=== PATIENT | male | born 1960 | race Caucasian/White ===

== ENCOUNTER 2020-04-23 20:58 | Observation (INO) | payer BC, OTHER ==
[~2020-04-23] VITALS: Ht 182.9 cm; Wt 138.3 kg
[2020-04-23 21:36] LABS: BASOPHILS # (AUTO) 0.1 (0.0-0.1); BASOPHILS % 0.8 % (0.0-1.0); EOSINOPHILS # (AUTO) 0.2 (0.0-0.4); HEMATOCRIT 44.6 % (38.2-49.6); HEMOGLOBIN 16.1 g/dL (14.0-18.0); LYMPHOCYTES # (AUTO) 3.8 (1.0-3.2); MEAN CORPUSCULAR HEMOGLOBIN 34.5 pg (28-32); MEAN CORPUSCULAR HGB CONC 36.1 g/dL (31-35); MEAN CORPUSCULAR VOLUME 95.7 fL (81-99); MONOCYTES % 11.2 % (4.4-11.3); NEUTROPHILS % 43.8 % (38.7-80.0); PLATELET COUNT 260 x10e3/uL (140-360); RED BLOOD COUNT 4.66 x10e6/uL (4.3-5.7); RED CELL DISTRIBUTION WIDTH 12.7 % (11.7-14.4)
[2020-04-23 21:45] LABS: INR 0.88; PROTHROMBIN TIME 12.4 seconds (11.9-14.5)
[2020-04-23 21:46] LABS: PARTIAL THROMBOPLASTIN TIME 43.5 seconds (23.8-35.5)
[2020-04-23 21:55] LABS: ALANINE AMINOTRANSFERASE 42 IU/L (0-55); ALBUMIN 3.9 g/dL (3.5-5.0); ALBUMIN/GLOBULIN RATIO 1.1 (0.8-2.0); ALKALINE PHOSPHATASE 64 IU/L (40-150); ANION GAP 14.3 mmol/L (8-16); BLOOD UREA NITROGEN 16 mg/dL (7-26); BUN/CREATININE RATIO 18 (6-25); CALCIUM 8.5 mg/dL (8.4-10.2); CARBON DIOXIDE 24 mmol/L (22-29); CHLORIDE 106 mmol/L (98-107); CREATINE KINASE 144 IU/L (30-200); EST GLOMERULAR FILTRATION RATE > 60 ML/MIN (60-); GLUCOSE 138 mg/dL (74-118); POTASSIUM 4.3 mmol/L (3.5-5.1); SODIUM 140 mmol/L (136-145)
[2020-04-24] MEDS ORDERED: METOPROLOL TARTRATE INJ 1 MG/ML VIAL IV ONE (02:30)
[2020-04-24] MEDS ORDERED: METOPROLOL TARTRATE INJ 1 MG/ML VIAL ONE (02:47)
[2020-04-24 06:27] LABS: CREATINE KINASE MB 2.4 ng/mL (0-5.0)
[2020-04-24] MEDS: APIXABAN 5 MG TABLET PO SCH ×2 (10:54→17:29)
[2020-04-24] MEDS: AMIODARONE HCL 200 MG TAB PO SCH ×2 (10:54→17:29)
[2020-04-24] MEDS ORDERED: ALEVE220 M1 PO (12:46)
[2020-04-24] MEDS ORDERED: MULTI-VITAMIN1 EACH PO (12:46)
[2020-04-24] MEDS ORDERED: OMEPRAZOLE40 MG PO (12:46)
[2020-04-24] MEDS ORDERED: ASCORBIC ACID500 MG PO (12:46)
[2020-04-24 14:07] LABS: CREATINE KINASE MB 2.2 ng/mL (0-5.0)
[2020-04-24 14:09] VITALS: BP 131/91
[2020-04-24 16:58] VITALS: BP 131/98
[2020-04-24 20:00] VITALS: BP 132/88
[2020-04-25] VITALS: BP 125/87
[2020-04-25 00:02] VITALS: BP 132/88
[2020-04-25 04:00] VITALS: BP 128/89
[2020-04-25 05:39] LABS: BASOPHILS % 0.6 % (0.0-1.0); EOSINOPHILS # (AUTO) 0.1 (0.0-0.4); HEMATOCRIT 48.1 % (38.2-49.6); HEMOGLOBIN 16.3 g/dL (14.0-18.0); LYMPHOCYTES # (AUTO) 2.3 (1.0-3.2); LYMPHOCYTES % 32.2 % (18.0-39.1); MEAN CORPUSCULAR HGB CONC 33.9 g/dL (31-35); MEAN CORPUSCULAR VOLUME 94.5 fL (81-99); MONOCYTES # (AUTO) 0.8 (0.2-0.8); NEUTROPHILS # (AUTO) 3.7 (2.1-6.9); NEUTROPHILS % 52.9 % (38.7-80.0); PLATELET COUNT 237 x10e3/uL (140-360); RED BLOOD COUNT 5.09 x10e6/uL (4.3-5.7); RED CELL DISTRIBUTION WIDTH 12.2 % (11.7-14.4)
[2020-04-25 05:44] LABS: CALCIUM IONIZED 1.2 mmol/L (1.09-1.30)
[2020-04-25 06:11] LABS: ALANINE AMINOTRANSFERASE 41 IU/L (0-55); ALBUMIN 3.9 g/dL (3.5-5.0); ALBUMIN/GLOBULIN RATIO 1.1 (0.8-2.0); ALKALINE PHOSPHATASE 70 IU/L (40-150); ANION GAP 13.3 mmol/L (8-16); BLOOD UREA NITROGEN 18 mg/dL (7-26); BUN/CREATININE RATIO 19 (6-25); CALCIUM 8.6 mg/dL (8.4-10.2); CARBON DIOXIDE 28 mmol/L (22-29); CHLORIDE 104 mmol/L (98-107); CREATININE, SERUM 0.95 mg/dL (0.72-1.25); EST GLOMERULAR FILTRATION RATE > 60 ML/MIN (60-); GLUCOSE 116 mg/dL (74-118); MAGNESIUM 1.9 MG/DL (1.3-2.1); POTASSIUM 4.3 mmol/L (3.5-5.1); SODIUM 141 mmol/L (136-145)
[2020-04-25 06:32] LABS: CHOL/HDL RATIO 4.6 (3.9-4.7)
[2020-04-25] MEDS: APIXABAN 5 MG TABLET PO SCH (09:17)
[2020-04-25] MEDS: AMIODARONE HCL 200 MG TAB PO SCH (09:17)
[2020-04-25 09:42] VITALS: BP 142/90
[2020-04-25] MEDS ORDERED: ELIQUIS5 MG PO (09:50)
[2020-04-25] MEDS ORDERED: AMIODARONE HCL200 MG PO (09:50)
== END 2020-04-25 11:02 | disposition home or self-care (01) ==
LOC: ER 22:35 → ERHOLD 04-24 02:57 → MED/SURG2 04-24 12:13
PROVIDERS: ADMIT Internal Medicine; ATTEND Internal Medicine
DX: I48.0 Paroxysmal atrial fibrillation (principal); M06.9 Rheumatoid arthritis, unspecified; Z11.59 Encounter for screening for other viral diseases; E66.9 Obesity, unspecified; Z68.41 Body mass index [BMI] 40.0-44.9, adult; E07.9 Disorder of thyroid, unspecified; K21.9 Gastro-esophageal reflux disease without esophagitis
CPT/HCPCS: 36415 ×3; 71046; 80053 ×2; 80061; 82550 ×2; 82553 ×2; 83735; 83880; 84100; 84443; 84484 ×2; 85025 ×2; 85610; 85730; 93005; 93306; 99251; 99284; G0378 ×2; U0002

== ENCOUNTER 2025-01-14 07:51 | Observation (INO) | payer BC, OTHER ==
[~2025-01-14] VITALS: Ht 180.3 cm; Wt 133.8 kg
[2025-01-14] VITALS (8 sets, daily range): BP systolic 112–143; BP diastolic 76–94; PULSE 65–100; RESP 15–20; TEMP 97.5–98.6; O2SAT 96–99
[~2025-01-14 07:51] MED LIST: ALEVE220 M1 PO; AMIODARONE HCL200 MG PO; ASCORBIC ACID500 MG PO; ELIQUIS5 MG PO; MULTI-VITAMIN1 EACH PO; OMEPRAZOLE40 MG PO
[2025-01-14] MEDS ORDERED: ENOXAPARIN SODIUM INJ 100 MG/ML SYR SC SCH (08:00)
[2025-01-14] MEDS ORDERED: SODIUM CHLORIDE FLUSH 10 ML SYR IV PRN (08:00)
[2025-01-14 08:11] LABS: BASOPHILS % 0.5 % (0.0-1.0); EOSINOPHILS % 2.1 % (0.0-6.0); LYMPHOCYTES % 37.0 % (18.0-39.1); MONOCYTES % 11.1 % (4.4-11.3); NEUTROPHILS % 49.1 % (38.7-80.0); RED CELL DISTRIBUTION WIDTH 12.2 % (11.7-14.4)
[2025-01-14] MEDS: ENOXAPARIN SODIUM INJ 100 MG/ML SYR SC SCH (08:23)
[2025-01-14] MEDS: ASPIRIN 81 MG CHEW TAB PO ONE (08:23)
[2025-01-14 08:40] LABS: EST GLOMERULAR FILTRATION RATE 87.0 ML/MIN (>=60)
[2025-01-14] MEDS ORDERED: ONDANSETRON HCL INJ 2MG/ML 2ML 2 MG/ML VIAL IV PRN (09:45)
[2025-01-14] MEDS ORDERED: SODIUM CHLORIDE FLUSH 10 ML SYR INJ PRN (09:45)
[2025-01-14] MEDS ORDERED: POLYETHYLENE GLYCOL 3350 17 GM PACK PO PRN (23:45)
[2025-01-14] MEDS ORDERED: BISACODYL 10 MG SUPP PR PRN (23:45)
[2025-01-14] MEDS ORDERED: LABETALOL HCL 5 MG/ML 20ML VIAL IV PRN (23:45)
[2025-01-14] MEDS ORDERED: ACETAMINOPHEN 325 MG TAB PO PRN (23:45)
[2025-01-15] VITALS: BP 110/73; PULSE 72; RESP 20; TEMP 98; O2SAT 95
[2025-01-15 02:33] VITALS: BP 110/73; PULSE 72; RESP 20; TEMP 98; O2SAT 95
[2025-01-15 04:00] VITALS: BP 108/73; PULSE 68; RESP 20; TEMP 98; O2SAT 98
[2025-01-15 06:15] LABS: BASOPHILS % 0.7 % (0.0-1.0); EOSINOPHILS % 2.8 % (0.0-6.0); LYMPHOCYTES % 36.4 % (18.0-39.1); MONOCYTES % 13.8 % (4.4-11.3); NEUTROPHILS % 46.0 % (38.7-80.0); RED CELL DISTRIBUTION WIDTH 12.3 % (11.7-14.4)
[2025-01-15 06:42] LABS: EST GLOMERULAR FILTRATION RATE 88.0 ML/MIN (>=60)
[2025-01-15 07:12] LABS: CHOL/HDL RATIO 4.8 (3.9-4.7)
[2025-01-15 07:44] LABS: LDL CHOLESTEROL 99.0 MG/DL (60-130)
[2025-01-15 08:12] VITALS: BP 123/91; PULSE 67; RESP 18; TEMP 97.9; O2SAT 100
[2025-01-15 09:00] VITALS: BP 123/91; PULSE 67; RESP 18; TEMP 97.9; O2SAT 100
[2025-01-15] MEDS: APIXABAN 5 MG TABLET PO SCH (09:13)
[2025-01-15] MEDS: DOCUSATE SODIUM 100 MG CAP PO SCH (09:13)
[2025-01-15] MEDS: METOPROLOL SUCCINATE 25 MG TAB XL PO SCH (09:14)
[2025-01-15 11:21] VITALS: BP 135/82; PULSE 68; RESP 18; TEMP 97.8; O2SAT 99
[2025-01-15] MEDS ORDERED: ELIQUIS5 MG PO (12:34)
[2025-01-15] MEDS ORDERED: TOPROL XL25 MG PO (12:34)
== END 2025-01-15 14:05 | disposition home or self-care (01) ==
LOC: ER 07:56 → ERHOLD 09:37 → MED/SURG2 10:41
PROVIDERS: ADMIT Internal Medicine; ATTEND Internal Medicine
DX: I48.91 Unspecified atrial fibrillation (principal); Z96.642 Presence of left artificial hip joint; Z96.653 Presence of artificial knee joint, bilateral; E66.01 Morbid (severe) obesity due to excess calories; Z68.41 Body mass index [BMI] 40.0-44.9, adult; M47.9 Spondylosis, unspecified
CPT/HCPCS: 36415 ×2; 71045; 80053 ×2; 80061; 82550; 83735; 83880; 84443; 84484 ×2; 85025 ×2; 94760; 99284; G0378 ×2; J1650